=== PATIENT | male | born 1940 | race Caucasian/White ===

== ENCOUNTER 2020-04-02 11:58 | Inpatient (IN) | payer OTHER ==
[2020-04-02] MEDS ORDERED: NALOXONE 0.4 MG/ML 1 ML VIAL IV PRN (12:26)
[2020-04-02] MEDS ORDERED: PANTOPRAZOLE 40 MG/10 ML VIAL IVP STA (12:26)
--- NOTE | 2020-04-02 12:30 | ED ---
General Adult HPI - General Chief complaint: GI Bleed Stated complaint: Poss GI Bleed Time Seen by Provider: 04/02/20 12:06 Source: patient, EMS, RN notes reviewed, old records reviewed Mode of arrival: EMS Limitations: no limitations - History of Present Illness Initial comments: 79 -year-old male presenting as a transfer from outside facility with GI bleed. Patient had initially felt dizzy and lightheaded with melanotic stool. He went to an outside hospital revealed was found to be occult positive. His initial hemoglobin was 8.2 was transfused one unit for symptomatic anemia and repeat hemoglobin testing was 8.3 and at this time he was transferred for GI evaluation. Patient has no complaints time my evaluation. No dyspnea, no abdominal pain. He feels lightheaded only with standing. He believes that he may have inadvertently taken a double dose of his Xarelto. He has history of atrial fibrillation and is anticoagulated. Additional issue during his ER stay was urinary retention. Patient denies lower abdominal pain or the sensation urinate currently. No fevers. No cough no dyspnea. Review of Systems ROS Statement: Those systems with pertinent positive or pertinent negative responses have been documented in the HPI. ROS Other: All systems not noted in ROS Statement are negative. Past Medical History Past Medical History: Atrial Fibrillation Additional Past Medical History / Comment(s): anemia, UTI, urinary retention History of Any Multi-Drug Resistant Organisms: None Reported Past Surgical History: Appendectomy Past Psychological History: No Psychological Hx Reported Smoking Status: Former smoker Past Alcohol Use History: Occasional Past Drug Use History: None Reported General Exam Limitations: no limitations General appearance: alert, in no apparent distress Head exam: Present: atraumatic, normocephalic Eye exam: Present: normal appearance, PERRL ENT exam: Present: normal exam Neck exam: Present: normal inspection. Absent: tenderness, meningismus Respiratory exam: Present: normal lung sounds bilaterally. Absent: respiratory distress, wheezes Cardiovascular Exam: Present: regular rate, irregular rhythm GI/Abdominal exam: Present: soft. Absent: distended, tenderness, guarding Extremities exam: Present: normal inspection, normal capillary refill. Absent: pedal edema, calf tenderness Neurological exam: Present: alert, oriented X3, CN II-XII intact. Absent: motor sensory deficit Skin exam: Present: warm, dry, intact, normal color Course Vital Signs 04/02/20 04/02/20 12:03 12:22 Temperature 99.2 F Pulse Rate 100 Respiratory 20 Rate Blood Pressure 89/53 96/56 O2 Sat by Pulse 97 Oximetry EKG Findings - EKG Comments: EKG Findings:: EKG: Atrial fibrillation, rate of 98, QRS duration 72, QTC [address] segment elevation. Medical Decision Making - Medical Decision Making 79-year-old male transferred for GI bleed. All labs will be repeated. Case discussed with Dr. Mosqueda who will admit. The patient has been started on Protonix. Xarelto will be held. GI placed on consult. Disposition Clinical Impression: Melena, GI bleed Disposition: ADMITTED IP TO THIS [facility] Condition: Stable Is patient prescribed a controlled substance at d/c from ED?: No Referrals: Nonstaff,Physician [Primary Care Provider] - 1-2 days Decision to Admit Reason: Admit from EC Decision Date: 04/02/20 Decision Time: 12:39
[2020-04-02 12:53] LABS: Calcium 8.1 mg/dL (8.4-10.2); Magnesium 1.7 mg/dL (1.6-2.3); Potassium 4.1 mmol/L (3.5-5.1); Total Bilirubin 0.9 mg/dL (0.2-1.3); Total Protein 5.5 g/dL (6.3-8.2)
[2020-04-02 12:55] LABS: Anisocytosis Moderate; HCT 25.8 % (39.0-53.0); HGB 8.4 gm/dL (13.0-17.5); Hypochromasia Slight; MCH 33.8 pg (25.0-35.0); MCHC 32.5 g/dL (31.0-37.0); MCV 103.9 fL (80.0-100.0); Macrocytosis Marked; Mean Platelet Volume 7.7; Platelet Count 283 k/uL (150-450); Poikilocytosis Slight; RBC 2.49 m/uL (4.30-5.90); RDW 23.2 % (11.5-15.5)
[2020-04-02 13:01] LABS: INR 1.1 (<1.2)
[2020-04-02] MEDS: SODIUM CHLORIDE 0.9% 1,000 ML IV SCH ×2 (13:10→23:50)
[2020-04-02 13:36] LABS: Band Neutrophils % 1 %; Eosinophils # (M) 0.12 k/uL (0-0.7); Lymphocytes # (M) 1.32 k/uL (1.0-4.8); Metamyelocytes # (M) 0.24 k/uL (0); Metamyelocytes % 2 %; Monocytes # (M) 0.48 k/uL (0-1.0); Myelocytes # (M) 0.36 k/uL (0); Myelocytes % 3 %; Neutrophils % (M) 80 %; Nucleated Red Blood Cells 4 /100 WBC (0-0); Polychromasia Present; Total Cells Counted 200
[2020-04-02 13:37] LABS: Mixed Population RBC Present
--- NOTE | 2020-04-02 14:45 | XR ---
EXAMINATION TYPE: XR chest 2V DATE OF EXAM: 04/02/2020 COMPARISON: NONE TECHNIQUE: PA and lateral views submitted. HISTORY: Dizziness FINDINGS: The lungs are clear and there is no pneumothorax, pleural effusion, or focal pneumonia. Vascular ca lcification seen. Diffuse osteopenia and arthropathy shoulders. Atherosclerotic change aorta. Mild ca rdiomegaly. Degenerative change of the spine. IMPRESSION: 1. No acute process.
[2020-04-02] MEDS: PANTOPRAZOLE 40 MG/10 ML VIAL IVP SCH (20:20)
--- NOTE | 2020-04-02 23:44 | P.HPIM ---
History of Present Illness This is a pleasant 79 years old male with past medical history of atrial fibrillation on Xarelto, history of urinary retention. Presents with possible GI bleed. Patient initially presented to [facility] fall from [facility] when he slipped on ice and hurt his right upper arm where there is a bruise, he is complaining from dizziness for the last 4-5 days although currently he denies any dizziness. And his occult blood stool was positive. Also on admission he was hypotensive 89/53, however on baseline blood pressure He denies abdominal pain, his little short of breath and has some confusion with little loose bowel movement He denies smoking, illicit tracts. He drinks alcohol occasionally. He used [place] for pain but no NSAIDs. Also he is on Xarelto and aspirated On reviewing [facility] documents patient has sodium of 133, potassium 3.9, hemoglobin 8.3 ([facility] documents state his previous hemoglobin was 10.4), WBC 10.7 K, platelet 290 9K, INR 1.7. Urinalysis was not suspicious of infection. AST 35, ALT 23. Bilirubin 1.0. CT of the abdomen and pelvis with IV contrast at [place] showing lung Bases with moderate bronchiectasis and multiple scarring. 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 Heart rate is 100. Afebrile. Left showed mild leukocytosis of 11 K, hemoglobin 8.4, unknown baseline. Platelets normal. INR is normal. BMP and liver enzymes were unremarkable. EKG showing atrial fibrillation's with a heart rate of 98. No significant ST-T changes Review of Systems CONSTITUTIONAL: No fever, no malaise, no fatigue. HEENT: No recent visual problems or hearing problems. Denied any sore throat. CARDIOVASCULAR: No orthopnea, PND, no palpitations, no syncope. PULMONARY: No shortness of breath, no cough, no hemoptysis. GASTROINTESTINAL: No diarrhea, no nausea, no vomiting, no abdominal pain. Normoactive bowel sounds. NEUROLOGICAL: No headaches, no weakness, no numbness. HEMATOLOGICAL: Denies any bleeding or petechiae. GENITOURINARY: Denies any burning micturition, frequency, or urgency. MUSCULOSKELETAL/RHEUMATOLOGICAL: Denies any joint pain, swelling, or any muscle pain. ENDOCRINE: Denies any polyuria or polydipsia. Past Medical History Past Medical History: Atrial Fibrillation Additional Past Medical History / Comment(s): anemia, UTI, urinary retention History of Any Multi-Drug Resistant Organisms: None Reported Past Surgical History: Appendectomy Past Psychological History: No Psychological Hx Reported Smoking Status: Former smoker Past Alcohol Use History: Occasional Past Drug Use History: None Reported - Past Family History Father Family Medical History: Cancer Medications and Allergies Home Medications Medication Instructions Recorded Confirmed Type Aspirin EC [Ecotrin Low Dose] 81 mg PO DAILY 04/02/20 04/02/20 History Atorvastatin [Lipitor] 80 mg PO HS 04/02/20 04/02/20 History Cilostazol [Pletal] 100 mg PO BID 04/02/20 04/02/20 History Famotidine [Pepcid] 20 mg PO DAILY 04/02/20 04/02/20 History Ferrous Sulfate [Feosol] 325 mg PO BID 04/02/20 04/02/20 History Furosemide [Lasix] 20 mg PO DAILY 04/02/20 04/02/20 History HYDROcodone/APAP 5-325MG [[place] 1 tab PO Q12H PRN 04/02/20 04/02/20 History 5-325] Isosorbide Mononitrate [Imdur] 120 mg PO BID 04/02/20 04/02/20 History Metoprolol Tartrate [Lopressor] 100 mg PO BID 04/02/20 04/02/20 History Potassium Chloride ER [K-Dur 20] 20 meq PO DAILY 04/02/20 04/02/20 History Rivaroxaban [Xarelto] 20 mg PO DAILY 04/02/20 04/02/20 History lisinopriL [Zestril] 20 mg PO DAILY 04/02/20 04/02/20 History Allergies Allergy/AdvReac Type Severity Reaction Status Date / Time No Known Allergies Allergy Verified 04/02/20 13:26 Physical Exam Vitals: Vital Signs Temp Pulse Resp BP Pulse Ox 04/02/20 12:22 96/56 04/02/20 12:03 99.2 F 100 20 89/53 97 Intake and Output 04/01/20 04/02/20 04/02/20 22:59 06:59 14:59 Other: Weight 89.358 kg -GENERAL: The patient is alert and oriented x3, not in any acute distress. Generally weak HEENT: Pupils are round and equally reacting to light. EOMI. No scleral icterus. No conjunctival pallor. Normocephalic, atraumatic. No pharyngeal erythema. No thyromegaly. CARDIOVASCULAR: S1 and S2 present. No murmurs, rubs, or gallops. PULMONARY: Chest is clear to auscultation, no wheezing or crackles. ABDOMEN: Soft, nontender, nondistended, normoactive bowel sounds. No palpable organomegaly. MUSCULOSKELETAL: No joint swelling or deformity. -EXTREMITIES: No cyanosis, clubbing, mild bilateral pitting leg edema. NEUROLOGICAL: Gross neurological examination did not reveal any focal deficits. SKIN: No rashes. No petechiae Results CBC & Chem 7: 04/02/20 12:30 04/02/20 12:30 Labs: Abnormal Lab Results - Last 24 Hours (Table) 04/02/20 04/02/20 Range/Units 12:30 12:30 WBC 12.5 H (3.8-10.6) k/uL RBC 2.49 L (4.30-5.90) m/uL Hgb 8.4 L (13.0-17.5) gm/dL Hct 25.8 L (39.0-53.0) % MCV 103.9 H (80.0-100.0) fL RDW 23.2 H (11.5-15.5) % Macrocytosis Marked A Sodium 134 L (137-145) mmol/L BUN 29 H (9-20) mg/dL Glucose 111 H (74-99) mg/dL Calcium 8.1 L (8.4-10.2) mg/dL Total Protein 5.5 L (6.3-8.2) g/dL Albumin 3.0 L (3.5-5.0) g/dL Assessment and Plan Assessment: Possible acute GI bleed Hypotension secondary to above Acute blood loss anemia Chronical fibrillation, was on Xarelto (held on admission). Rate controlled Bilateral basal pulmonary bronchiectasis Large left hemiscrotal hydrocele Plan: This is a pleasant 79 years old male who presents with GI bleed. Monitor hemoglobin. Continue with IV fluids. Transfuse if hemoglobin less than 7 or symptomatic. GI consult. Continue with Protonix. Hold metoprolol and lisinopril for low blood pressure. Hold aspirin and Xarelto Labs and medication were reviewed.. Continue same treatment. Continue with sym ptomatic treatment. Resume home medication. Monitor lytes and vitals. DVT and GI prophylaxis. Further recommendations depends on the clinical course of the patient DVT prophylaxis:no heparin in view of GI bleed GI Prophylaxis: Ppi PT/OT: Pending Prognosis is guarded
[2020-04-03 06:43] LABS: Anisocytosis Moderate; HCT 23.6 % (39.0-53.0); HGB 7.6 gm/dL (13.0-17.5); Hypochromasia Slight; MCH 33.9 pg (25.0-35.0); MCHC 32.2 g/dL (31.0-37.0); MCV 105.2 fL (80.0-100.0); Macrocytosis Marked; Platelet Count 233 k/uL (150-450); Poikilocytosis Slight; RBC 2.24 m/uL (4.30-5.90); RDW 23.3 % (11.5-15.5)
[2020-04-03 07:20] LABS: Band Neutrophils % 1 %; Myelocytes # (M) 0.14 k/uL (0); Myelocytes % 2 %; Neutrophils % (M) 74 %; Nucleated Red Blood Cells 3 /100 WBC (0-0); Total Cells Counted 200
[2020-04-03 07:21] LABS: Lymphocytes # (M) 1.09 k/uL (1.0-4.8); Monocytes # (M) 0.54 k/uL (0-1.0); Polychromasia Present; WBC 6.8 k/uL (3.8-10.6)
[2020-04-03] MEDS: SODIUM CHLORIDE 0.9% 1,000 ML IV SCH ×2 (08:12→23:20)
[2020-04-03] MEDS: PANTOPRAZOLE 40 MG/10 ML VIAL IVP SCH ×2 (08:14→21:46)
[2020-04-03] MEDS: FERROUS SULFATE 325 MG TAB PO SCH ×2 (08:14→21:46)
[2020-04-03] MEDS: FUROSEMIDE 20 MG TAB PO SCH (08:26)
[2020-04-03 10:47] LABS: African American GFR (CKD) 94.5 (60.0-200.0); Anion Gap 8.2 mmol/L (4.00-12.00); BUN/Creat Ratio 24.44 Ratio (12.00-20.00); Calcium 7.8 mg/dL (8.7-10.3); Carbon Dioxide 22.8 mmol/L (21.6-31.8); Non-African American GFR(CKD) 81.5 (60.0-200.0); Potassium 3.8 mmol/L (3.5-5.5)
--- NOTE | 2020-04-03 10:56 | P.PN ---
Subjective This is a pleasant 79 years old male with past medical history of atrial fibrillation on Xarelto, history of urinary retention. Presents with possible GI bleed. Patient initially presented to [facility] for fall from standing when he slipped on ice and hurt his right upper arm where there is a bruise, he is complaining from dizziness for the last 4-5 days although currently he denies any dizziness. And his occult blood stool was positive. Also on admission he was hypotensive 89/53, however on baseline blood pressure He denies abdominal pain, his little short of breath and has some confusion with little loose bowel movement He denies smoking, illicit tracts. He drinks alcohol occasionally. He used [place] for pain but no NSAIDs. Also he is on Xarelto and aspirated On reviewing [facility] documents patient has sodium of 133, potassium 3.9, hemoglobin 8.3 ([facility] documents state his previous hemoglobin was 10.4), WBC 10.7 K, platelet 290 9K, INR 1.7. Urinalysis was not suspicious of infection. AST 35, ALT 23. Bilirubin 1.0. CT of the abdomen and pelvis with IV contrast at [place] showing lung Bases with moderate bronchiectasis and multiple scarring. 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 Heart rate is 100. Afebrile. Left showed mild leukocytosis of 11 K, hemoglobin 8.4, unknown baseline. Platelets normal. INR is normal. BMP and liver enzymes were unremarkable. EKG showing atrial fibrillation's with a heart rate of 98. No significant ST-T changes 04/03/2020 Patient dizziness improved. No more diarrhea since admission. His stool is formed however is a still a black but there is no fresh blood in stool or per rectum. Patient denies abdominal pain. No breathing difficulty or chest pain. Chest exam is clear. He has only trace leg edema. Blood pressure this morning is 99/66-107/70. Heart rate 93. Hemoglobin went down to 7.6 however there is element of hemodilution with a drop in WBC to 6.8K and platelets are 233K. BMP is unremarkable. GI team were consulted Continue with Protonix IV at normal saline at 50 mL/h Objective - Vital Signs Vital signs: Vital Signs Temp 98.7 F 04/03/20 07:13 Pulse 93 04/03/20 07:13 Resp 17 04/03/20 07:13 BP 107/70 04/03/20 08:08 Pulse Ox 97 04/03/20 07:13 Intake & Output 04/02/20 04/03/20 04/03/20 18:59 06:59 18:59 Weight 89.358 kg Other: Voiding Method Toilet Urinal # Voids 0 1 # Bowel Movements 1 - Exam GENERAL: The patient is alert and oriented x3, not in any acute distress. Well developed, well nourished. HEENT: Pupils are round and equally reacting to light. EOMI. No scleral icterus. No conjunctival pallor. Normocephalic, atraumatic. No pharyngeal erythema. No thyromegaly. CARDIOVASCULAR: S1 and S2 present. No murmurs, rubs, or gallops. PULMONARY: Chest is clear to auscultation, no wheezing or crackles. ABDOMEN: Soft, nontender, nondistended, normoactive bowel sounds. No palpable organomegaly. MUSCULOSKELETAL: No joint swelling or deformity. EXTREMITIES: No cyanosis, clubbing, or pedal edema. NEUROLOGICAL: Gross neurological examination did not reveal any focal deficits. SKIN: No rashes. no petechiae. - Labs CBC & Chem 7: 04/03/20 06:07 04/02/20 12:30 Labs: Abnormal Lab Results - Last 24 Hours (Table) 04/02/20 04/02/20 04/03/20 Range/Units 12:30 12:30 06:07 WBC 12.0 H (3.8-10.6) k/uL RBC 2.49 L 2.24 L (4.30-5.90) m/uL Hgb 8.4 L 7.6 L (13.0-17.5) gm/dL Hct 25.8 L 23.6 L (39.0-53.0) % MCV 103.9 H 105.2 H (80.0-100.0) fL RDW 23.2 H 23.3 H (11.5-15.5) % Neutrophils # (Manual) 9.70 H (1.3-7.7) k/uL Metamyelocytes # (Man) 0.24 H (0) k/uL Myelocytes # (Manual) 0.36 H 0.14 H (0) k/uL Nucleated RBCs 4 H 3 H (0-0) /100 WBC Macrocytosis Marked A Marked A Sodium 134 L (137-145) mmol/L BUN 29 H (9-20) mg/dL Glucose 111 H (74-99) mg/dL Calcium 8.1 L (8.4-10.2) mg/dL Total Protein 5.5 L (6.3-8.2) g/dL Albumin 3.0 L (3.5-5.0) g/dL Assessment and Plan Assessment: Possible acute GI bleed Hypotension secondary to above Acute blood loss anemia Chronical fibrillation, was on Xarelto (held on admission). Rate controlled Bilateral basal pulmonary bronchiectasis Large left hemiscrotal hydrocele Plan: This is a pleasant 79 years old male who presents with GI bleed. Monitor hemoglobin. Continue with IV fluids. Transfuse if hemoglobin less than 7 or symptomatic. GI consult. Continue with Protonix. Hold metoprolol and lisinopril for low blood pressure. Hold aspirin and Xarelto Labs and medication were reviewed.. Continue same treatment. Continue with symptomatic treatment. Resume home medication. Monitor lytes and vitals. DVT and GI prophylaxis. Further recommendations depends on the clinical course of the patient DVT prophylaxis:no heparin in view of GI bleed GI Prophylaxis: Ppi PT/OT: Pending Prognosis is guarded
[2020-04-03] MEDS: METOPROLOL TARTRATE 12.5 MG TAB PO SCH ×2 (12:26→21:45)
--- NOTE | 2020-04-03 18:28 | US ---
EXAMINATION TYPE: US scrotum with doppler. Grayscale and color Doppler Duplex imaging performed of jesús pagan scrotum. DATE OF EXAM: 04/03/2020 COMPARISON: NONE CLINICAL HISTORY: scrotum edema. Left scrotal swelling EXAM MEASUREMENTS: TESTICLES: Right Testicle: 4.8 x 2.5 x 3.8 cm Left Testicle: 4.5 x 3.6 x 3.2 cm EPIDIDYMIS HEAD: Right Epididymis: 1.4 cm Doppler performed to assess for testicular vascularity; good bilateral color flow and waveforms are s een. There is no evidence of testicular torsion. Presence of hydroceles: Large fluid collection superior to left testicle with internal echoes. Presence of varicoceles: No Right epi head cyst= 1.1 cm Left rete testes upper pole= 1.7 cm Large fluid collection superior to left testicle with internal echoes = 12.8 x 8.7 x 8.4 cm, left e pididymis not visualized IMPRESSION: 12.8 cm complex fluid superior to the left testicle may represent hydrocele with spermatocele not exc luded. No evidence of testicular torsion.
[2020-04-03] MEDS ORDERED: ATORVASTATIN 80 MG TAB PO SCH (21:00)
--- NOTE | 2020-04-03 23:49 | P.CONS ---
History of Present Illness - Reason for Consult Consult date: 04/03/20 GI bleed Requesting physician: Ravi E Sheet - Chief Complaint Mechanical fall, dizziness - History of Present Illness 79-year-old male with multiple medical comorbidities including chronic anemia, atrial fibrillation on anticoagulation therapy with Xarelto and urinary re tention who presented to the hospital as a transfer from an outside facility where he had gone to seek care for a mechanical fall and dizziness. On questioning the patient reports a mechanical fall occurred in the setting of the dizziness, and he believes he passed out. On questioning the patient has a history of chronic anemia for which she is on iron therapy. As per report the patient is lying hemoglobin is approximately 10. He reports that at baseline bowel movements have been dark while on iron therapy. He does not believe there is no change in the color quality of the bowel movements. He denies any history of peptic ulcer disease or prior upper endoscopy in the past. The patient reports his last colonoscopy was approximately 1 year ago and normal per his recollection. Laboratory evaluation on presentation significant for WBC 6.8, hemoglobin 7.6, platelet count 233,000 with a total bilirubin 0.9, alkaline phosphatase 88, AST 46 and ALT 29. Review of Systems REVIEW OF SYSTEMS: CONSTITUTIONAL: Denies any fevers, chills, weight change or fatigue. CARDIOVASCULAR: Denies any chest pain, palpitations high or low blood pressures, but the patient does report a history of irregular heartbeat. RESPIRATORY: Denies any shortness of breath, hemoptysis or cough. GENITOURINARY: No dysuria or hematuria. MUSCULOSKELETAL: No weakness reported. SKIN: Denies any new rashes or lesions, jaundice or pallor. PSYCHIATRIC: Denies any depression or anxiety. NEUROLOGY: Denies headache, denies any new focal deficits, he had a fall which she believes is secondary to a syncopal episode. EARS/NOSE/THROAT: No recent hearing change, congestion, nasal discharge or sore throat. EYES: No pain in eyes, discharge or change in vision. GASTROINTESTINAL: As per HPI. Past Medical History Past Medical History: Atrial Fibrillation Additional Past Medical History / Comment(s): anemia, UTI, urinary retention History of Any Multi-Drug Resistant Organisms: None Reported Past Surgical History: Appendectomy Past Psychological History: No Psychological Hx Reported Smoking Status: Former smoker Past Alcohol Use History: Occasional Past Drug Use History: None Reported - Past Family History Father Family Medical History: Cancer Medications and Allergies Home Medications Medication Instructions Recorded Confirmed Type Aspirin EC [Ecotrin Low Dose] 81 mg PO DAILY 04/02/20 04/02/20 History Atorvastatin [Lipitor] 80 mg PO HS 04/02/20 04/02/20 History Cilostazol [Pletal] 100 mg PO BID 04/02/20 04/02/20 History Famotidine [Pepcid] 20 mg PO DAILY 04/02/20 04/02/20 History Ferrous Sulfate [Feosol] 325 mg PO BID 04/02/20 04/02/20 History Furosemide [Lasix] 20 mg PO DAILY 04/02/20 04/02/20 History HYDROcodone/APAP 5-325MG [[place] 1 tab PO Q12H PRN 04/02/20 04/02/20 History 5-325] Isosorbide Mononitrate [Imdur] 120 mg PO BID 04/02/20 04/02/20 History Metoprolol Tartrate [Lopressor] 100 mg PO BID 04/02/20 04/02/20 History Potassium Chloride ER [K-Dur 20] 20 meq PO DAILY 04/02/20 04/02/20 History Rivaroxaban [Xarelto] 20 mg PO DAILY 04/02/20 04/02/20 History lisinopriL [Zestril] 20 mg PO DAILY 04/02/20 04/02/20 History Allergies Allergy/AdvReac Type Severity Reaction Status Date / Time No Known Allergies Allergy Verified 04/02/20 13:26 Physical Exam Vitals: Vital Signs Temp Pulse Resp BP Pulse Ox 04/03/20 08:08 107/70 04/03/20 07:13 98.7 F 93 17 99/66 97 04/03/20 02:31 97.8 F 114 H 20 103/61 92 L 04/02/20 18:57 98.0 F 101 H 18 90/51 94 L 04/02/20 15:30 97.8 F 100 18 103/65 100 Intake and Output 04/03/20 04/03/20 04/03/20 06:59 14:59 22:59 Other: # Voids 1 # Bowel Movements 1 On physical examination, patient appears comfortable in no apparent distress. HEAD: Normocephalic, atraumatic. EYES: No scleral icterus. No conjunctival injection. MOUTH: No lesions, tongue midline. NECK: Trachea midline, no gross abnormalities. CHEST: Decreased air entry in all lung neff. HEART: S1-S2 appreciated, regularly irregular. ABDOMEN: Soft, and nontender. Bowel sounds are positive. No organomegaly. No guarding or rigidity. EXTREMITIES: Bilateral +1 pedal edema. SKIN: No rashes, no jaundice. NEUROLOGIC: Alert and oriented x3. Results CBC & Chem 7: 04/03/20 06:07 04/03/20 06:07 Labs: Abnormal Lab Results - Last 24 Hours (Table) 04/03/20 04/03/20 Range/Units 06:07 06:07 RBC 2.24 L (4.30-5.90) m/uL Hgb 7.6 L (13.0-17.5) gm/dL Hct 23.6 L (39.0-53.0) % MCV 105.2 H (80.0-100.0) fL RDW 23.3 H (11.5-15.5) % Myelocytes # (Manual) 0.14 H (0) k/uL Nucleated RBCs 3 H (0-0) /100 WBC Macrocytosis Marked A BUN/Creatinine Ratio 24.44 H (12.00-20.00) Ratio Glucose 119 H (70-110) mg/dL Calcium 7.8 L (8.7-10.3) mg/dL Chest x-ray: report reviewed (No acute process on chest x-ray) Assessment and Plan (1) Macrocytic anemia Narrative/Plan: 79-year-old male with multiple medical comorbidities including atrial fibrillation on anticoagulation therapy and chronic anemia on iron supplementation who presented to outside hospital due to a fall and reported syncope. Patient has a known history of anemia and as per reports baseline hemoglobin is approximately 10. Currently hemoglobin on presentation was 7.6 with macrocytic indices. He reports use of iron therapy twice daily at home. He reports that since he has been on iron therapy his bowel movements are dark and does not feel there has been a change in the color or quality. He denies any gross bleeding. He states his last colonoscopy was approximately 1 year ago in [place] and normal per his recollection. No history of peptic ulcer disease or prior EGD. He denies any abdominal pain. Unclear etiology of anemia, patient has reported history of chronic anemia on iron therapy, unclear if patient is is truly having melanotic stool or if black color is secondary to his iron therapy, concern is for possible upper GI bleed given a fall in his hemoglobin from baseline with plan for EGD to rule out peptic ulcer disease, AVM, esophagitis/gastritis or other etiology of possible bleeding. Current Visit: Yes Status: Acute Code(s): D53.9 - NUTRITIONAL ANEMIA, UNSPECIFIED SNOMED Code(s): 23818542 (2) Melena Current Visit: Yes Status: Acute Code(s): K92.1 - MELENA SNOMED Code(s): 0074243 Plan: Supportive care Okay for full liquid diet Continue to monitor hemoglobin and hematocrit and transfuse as needed Anemia laboratory evaluation initiated including iron studies, vitamin B12, folate and reticulocyte count Nothing by mouth after midnight with plan for EGD tomorrow to rule out upper GI bleed Continue to hold anticoagulation for now The patient's case has been discussed with him at length, with all of the risks, benefits and possible complications of the upper endoscopy explained with all of his questions answered to his satisfaction Thank you for allowing us to participate in the care of the patient we will continue to follow
[2020-04-04] MEDS: FUROSEMIDE 20 MG TAB PO SCH (07:03)
[2020-04-04] MEDS: FERROUS SULFATE 325 MG TAB PO SCH (07:03)
[2020-04-04] MEDS: PANTOPRAZOLE 40 MG/10 ML VIAL IVP SCH (07:33)
[2020-04-04] MEDS: METOPROLOL TARTRATE 12.5 MG TAB PO SCH (07:34)
[2020-04-04 07:57] LABS: Anisocytosis Moderate; HCT 27.7 % (39.0-53.0); HGB 8.6 gm/dL (13.0-17.5); Hypochromasia Moderate; MCH 33.2 pg (25.0-35.0); MCHC 30.9 g/dL (31.0-37.0); MCV 107.6 fL (80.0-100.0); Macrocytosis Marked; Mean Platelet Volume 7.5; Platelet Count 254 k/uL (150-450); Poikilocytosis Moderate; RBC 2.57 m/uL (4.30-5.90); RDW 23.2 % (11.5-15.5)
[2020-04-04 08:59] LABS: Basophils # (M) 0.06 k/uL (0-0.2); Eosinophils # (M) 0.12 k/uL (0-0.7); Lymphocytes # (M) 0.89 k/uL (1.0-4.8); Metamyelocytes # (M) 0.06 k/uL (0); Metamyelocytes % 1 %; Monocytes # (M) 0.35 k/uL (0-1.0); Myelocytes # (M) 0.41 k/uL (0); Myelocytes % 7 %; Neutrophils # (M) 4.13 k/uL (1.3-7.7); Neutrophils % (M) 70 %; Nucleated Red Blood Cells 1 /100 WBC (0-0); Total Cells Counted 200; WBC 5.9 k/uL (3.8-10.6)
[2020-04-04 09:00] LABS: Polychromasia Present
[2020-04-04 11:50] LABS: % Iron Saturation 9.18 (15.00-50.00); African American GFR (CKD) 99.2 (60.0-200.0); Anion Gap 6.4 mmol/L (4.00-12.00); BUN/Creat Ratio 12.5 Ratio (12.00-20.00); Calcium 8.2 mg/dL (8.7-10.3); Carbon Dioxide 23.6 mmol/L (21.6-31.8); Folate, Serum 11.4 ng/mL; Non-African American GFR(CKD) 85.6 (60.0-200.0); Potassium 3.9 mmol/L (3.5-5.5)
--- NOTE | 2020-04-04 12:43 | P.PN ---
Subjective This is a pleasant 79 years old male with past medical history of atrial fibrillation on Xarelto, history of urinary retention. Presents with possible GI bleed. Patient initially presented to [facility] for fall from standing when he slipped on ice and hurt his right upper arm where there is a bruise, he is complaining from dizziness for the last 4-5 days although currently he denies any dizziness. And his occult blood stool was positive. Also on admission he was hypotensive 89/53, however on baseline blood pressure He denies abdominal pain, his little short of breath and has some confusion with little loose bowel movement He denies smoking, illicit tracts. He drinks alcohol occasionally. He used [place] for pain but no NSAIDs. Also he is on Xarelto and aspirated On reviewing [facility] documents patient has sodium of 133, potassium 3.9, hemoglobin 8.3 ([facility] documents state his previous hemoglobin was 10.4), WBC 10.7 K, platelet 290 9K, INR 1.7. Urinalysis was not suspicious of infection. AST 35, ALT 23. Bilirubin 1.0. CT of the abdomen and pelvis with IV contrast at [place] showing lung Bases with moderate bronchiectasis and multiple scarring. 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 Heart rate is 100. Afebrile. Left showed mild leukocytosis of 11 K, hemoglobin 8.4, unknown baseline. Platelets normal. INR is normal. BMP and liver enzymes were unremarkable. EKG showing atrial fibrillation's with a heart rate of 98. No significant ST-T changes 04/03/2020 Patient dizziness improved. No more diarrhea since admission. His stool is formed however is a still a black but there is no fresh blood in stool or per rectum. Patient denies abdominal pain. No breathing difficulty or chest pain. Chest exam is clear. He has only trace leg edema. Blood pressure this morning is 99/66-107/70. Heart rate 93. Hemoglobin went down to 7.6 however there is element of hemodilution with a drop in WBC to 6.8K and platelets are 233K. BMP is unremarkable. GI team were consulted Continue with Protonix IV at normal saline at 50 mL/h 04/04/2020 Patient is awake and come, no abdominal pain or nausea vomiting. No more episodes of dizziness or diarrhea. He had 2-3 bouts of bowel movements. He is still noticing black stool Vitals and hemodynamically stable. GI team input is appreciated, patient is going for EGD today Xarelto and aspirin are still on hold Objective - Vital Signs Vital signs: Vital Signs Temp 98.2 F 04/04/20 07:52 Pulse 105 H 04/04/20 07:52 Resp 20 04/04/20 07:52 BP 112/76 04/04/20 07:52 Pulse Ox 99 04/04/20 07:52 Intake & Output 04/03/20 04/04/20 04/04/20 18:59 06:59 18:59 Other: Voiding Method Toilet Toilet Urinal Urinal # Voids 1 3 - Exam GENERAL: The patient is alert and oriented x3, not in any acute distress. Well developed, well nourished. HEENT: Pupils are round and equally reacting to light. EOMI. No scleral icterus. No conjunctival pallor. Normocephalic, atraumatic. No pharyngeal erythema. No thyromegaly. CARDIOVASCULAR: S1 and S2 present. No murmurs, rubs, or gallops. PULMONARY: Chest is clear to auscultation, no wheezing or crackles. ABDOMEN: Soft, nontender, nondistended, normoactive bowel sounds. No palpable organomegaly. MUSCULOSKELETAL: No joint swelling or deformity. EXTREMITIES: No cyanosis, clubbing, or pedal edema. NEUROLOGICAL: Gross neurological examination did not reveal any focal deficits. SKIN: No rashes. no petechiae. - Labs CBC & Chem 7: 04/04/20 07:01 04/04/20 07:01 Labs: Abnormal Lab Results - Last 24 Hours (Table) 04/04/20 04/04/20 04/04/20 Range/Units 07:01 07:01 07:01 RBC 2.57 L (4.30-5.90) m/uL Hgb 8.6 L (13.0-17.5) gm/dL Hct 27.7 L (39.0-53.0) % MCV 107.6 H (80.0-100.0) fL MCHC 30.9 L (31.0-37.0) g/dL RDW 23.2 H (11.5-15.5) % Lymphocytes # (Manual) 0.89 L (1.0-4.8) k/uL Metamyelocytes # (Man) 0.06 H (0) k/uL Myelocytes # (Manual) 0.41 H (0) k/uL Nucleated RBCs 1 H (0-0) /100 WBC Macrocytosis Marked A Retic Count 16.0 H (0.5-2.0) % Calcium 8.2 L (8.7-10.3) mg/dL Iron 29 L (65-175) ug/dL % Saturation 9.18 L (15.00-50.00) Assessment and Plan Assessment: Possible acute GI bleed Hypotension secondary to above Acute blood loss anemia Chronical fibrillation, was on Xarelto (held on admission). Rate controlled Bilateral basal pulmonary bronchiectasis Large left hemiscrotal hydrocele Plan: This is a pleasant 79 years old male who presents with GI bleed. Monitor hemoglobin. Continue with IV fluids. Transfuse if hemoglobin less than 7 or symptomatic. GI consult. Continue with Protonix. Hold metoprolol and lisinopril for low blood pressure. Hold aspirin and Xarelto Labs and medication were reviewed.. Continue same treatment. Continue with symptomatic treatment. Resume home medication. Monitor lytes and vitals. DVT and GI prophylaxis. Further recommendations depends on the clinical course of the patient DVT prophylaxis:no heparin in view of GI bleed GI Prophylaxis: Ppi PT/OT: Pending Prognosis is guarded
[2020-04-04] MEDS ORDERED: LIDOCAINE 1% INJ 10MG/ML (20 ML MDV) ONE (13:13)
[2020-04-04] MEDS ORDERED: PROPOFOL 10 MG/ML 20 ML VIAL IV ONE (13:13)
[2020-04-04] MEDS ORDERED: IV FLUID CONTINUATION 1,000 ML IV ONE (13:16)
--- NOTE | 2020-04-04 14:06 | P.PCN ---
Date of Procedure: 04/04/20 Description of Procedure: BRIEF HISTORY: 79-year-old male with multiple medical comorbidities including chronic anemia, atrial fibrillation on anticoagulation therapy with Xarelto and urinary retention who presented to the hospital as a transfer from an outside facility where he had gone to seek care for a mechanical fall and dizziness. On questioning the patient reports a mechanical fall occurred in the setting of the dizziness, and he believes he passed out. On questioning the patient has a history of chronic anemia for which she is on iron therapy. As per report the patient is lying hemoglobin is approximately 10. He reports that at baseline bowel movements have been dark while on iron therapy. He does not believe there is no change in the color quality of the bowel movements. He denies any history of peptic ulcer disease or prior upper endoscopy in the past. The patient reports his last colonoscopy was approximately 1 year ago and normal per his recollection. Laboratory evaluation on presentation significant for WBC 6.8, hemoglobin 7.6, platelet count 233,000 with a total bilirubin 0.9, alkaline phosphatase 88, AST 46 and ALT 29. PROCEDURE PERFORMED: Esophagogastroduodenoscopy with biopsy. PREOPERATIVE DIAGNOSIS: Anemia, melena. ESTIMATED BLOOD LOSS: Minimal. IV sedation per anesthesia. PROCEDURE: After informed consent was obtained, the patient was brought into the endoscopy unit. IV sedation was administered by Anesthesia under continuous monitoring. Initially the Olympus GIF-190 video endoscope was inserted into the mouth. Esophagus intubated without any difficulty. It was gradually advanced into the stomach and duodenum and carefully examined. The bulb and the second part of the duodenum appeared normal, except for some moderate erythema in the duodenal bulb. The scope at this time was withdrawn to the stomach, adequately ins ufflated with air, and upon careful examination, mucosa of the antrum, body, cardia and the fundus was significant for severe erythema in the antrum and body with superficial erosions suggestive of severe gastritis, with biopsies taken. The scope was then withdrawn into the esophagus. The GE junction was located at 39 cm from the incisors, with a small 1 cm hiatal hernia noted. The esophagus appeared normal. There were no erosions or ulcerations seen and the patient tolerated the procedure well. IMPRESSION: 1. Severe erosive gastritis. 2. Moderate duodenitis. 3. Small hiatal hernia. 4. Biopsies taken of the duodenum, antrum and body. RECOMMENDATIONS: The findings of this examination were discussed with the patient. Okay to resume diet. Okay to resume medications today and anticoagulation therapy tomorrow. Patient should be discharged on Protonix therapy. Avoid NSAID use. Await pathology from biopsies. Okay for discharge from GI standpoint when otherwise medically stable.
[2020-04-04 14:19] VITALS: RESP 18; TEMP 97.9
[2020-04-04 15:40] VITALS: BP 144/86; PULSE 89
== END 2020-04-04 17:56 | disposition home or self-care (01) | DRG 378 ==
LOC: SUPCPDRO 11:58 → EC 11:58 → 4SSUR 12:27
PROVIDERS: ADMIT Hospitalist; ATTEND Hospitalist
PROC: 0DB98ZX Excision of Duodenum, Via Natural or Artificial Opening Endoscopic, Diagnostic (ICD-10-PCS; principal; 2020-04-04 07:30)
PROC: 0DB78ZX Excision of Stomach, Pylorus, Via Natural or Artificial Opening Endoscopic, Diagnostic (ICD-10-PCS; principal; 2020-04-04 07:30)
DX: K29.61 Other gastritis with bleeding (principal); D62 Acute posthemorrhagic anemia; K29.81 Duodenitis with bleeding; I48.91 Unspecified atrial fibrillation; I95.9 Hypotension, unspecified; J47.9 Bronchiectasis, uncomplicated; N43.3 Hydrocele, unspecified; K44.9 Diaphragmatic hernia without obstruction or gangrene; Z79.01 Long term (current) use of anticoagulants; Z87.891 Personal history of nicotine dependence; Z79.899 Other long term (current) drug therapy; Z79.82 Long term (current) use of aspirin; Z79.02 Long term (current) use of antithrombotics/antiplatelets; Z87.440 Personal history of urinary (tract) infections; Z90.49 Acquired absence of other specified parts of digestive tract; Z80.9 Family history of malignant neoplasm, unspecified
CPT/HCPCS: 36415; 43239; 51798; 71046; 76870; 80048; 80053; 82607; 82728; 82746; 83540; 83550; 83735; 85025; 85045; 85610; 85730; 86850; 86900; 86901; 87635; 88305; 93005; 93975; 96374; 99285